=== PATIENT | female | born 1970 | race Caucasian/White ===

== ENCOUNTER 2024-12-08 12:26 | Emergency (ER) | payer MEDICARE, OTHER ==
[~2024-12-08] VITALS: Ht 167.6 cm; Wt 75.0 kg
[2024-12-08 13:01] VITALS: TEMP 99.1
[2024-12-08] MEDS: KETOROLAC TROMETHAMINE 30 MG/ML VIAL IM ONE (14:00)
[2024-12-08] MEDS: OxyCODONE HCL/ACETAMINOPHEN 5-325 MG TABLET PO ONE (14:01)
[2024-12-08] MEDS ORDERED: IBUP-1492 PO (15:34)
[2024-12-08] MEDS ORDERED: HYDR-4062 PO (15:34)
[2024-12-08 16:10] VITALS: BP 131/64; PULSE 84; RESP 18; O2SAT 99
== END 2024-12-08 16:39 | disposition home or self-care (01) ==
LOC: EMS 12:27
DX: S42.291A Other displaced fracture of upper end of right humerus, initial encounter for closed fracture (principal); M19.90 Unspecified osteoarthritis, unspecified site; F31.9 Bipolar disorder, unspecified; Z98.51 Tubal ligation status; Z98.890 Other specified postprocedural states; Z88.5 Allergy status to narcotic agent; W01.190A Fall on same level from slipping, tripping and stumbling with subsequent striking against furniture, initial encounter; Y93.89 Activity, other specified; Y92.89 Other specified places as the place of occurrence of the external cause; Y99.8 Other external cause status
CPT/HCPCS: 99284; 73060; 73070; 96372; J1885

== ENCOUNTER → 2024-12-08 | Outpatient (CLI) | payer MEDICARE, OTHER ==
[~2024-12-08] MED LIST: HYDR-4062 PO; IBUP-1492 PO
== END | disposition home or self-care (01) ==
LOC: RADMN 11:05
PROVIDERS: ATTEND Family Medicine
DX: S42.214A Unspecified nondisplaced fracture of surgical neck of right humerus, initial encounter for closed fracture (principal); M25.511 Pain in right shoulder; X58.XXXA Exposure to other specified factors, initial encounter; Y93.89 Activity, other specified; Y92.89 Other specified places as the place of occurrence of the external cause; Y99.8 Other external cause status
CPT/HCPCS: 73030-TC